=== PATIENT | female | born 1970 | race Caucasian/White ===

== ENCOUNTER → 2021-08-01 | Outpatient (CLI) | payer BC ==
--- NOTE | 2021-08-02 11:15 | MM ---
Reason for exam: screening (asymptomatic). Last mammogram was performed 3 years and 3 months ago. History: Patient is nulliparous. Retro-pectoral saline implants in both breasts, 1997. Physical Findings: A clinical breast exam by your physician is recommended on an annual basis and results should be correlated with mammographic findings. MG 3D Screen Mammo Imp/Cad Bilateral CC, MLO, and ID view(s) were taken. Prior study comparison: April 28, 2018, mammogram, performed at [place]. March 13, 2016, mammogram, performed at [place]. March 06, 2016, mammogram, performed at [place]. The breast tissue is extremely dense which could obscure a lesion on mammography. There is an increasing heterogeneous group of microcalcifications upper outer right breast zone B. Bilateral implants are intact. This finding is changed when compared with previous exams. ASSESSMENT: Incomplete: need additional imaging evaluation, BI-RAD 0 RECOMMENDATION: Special view mammogram of the right breast. [facility] will attempt to contact patient to return for supplemental views.
== END | disposition home or self-care (01) ==
LOC: RADMAMWWP 16:02
PROVIDERS: ATTEND Obstetrics & Gynecology
DX: Z12.31 Encounter for screening mammogram for malignant neoplasm of breast (principal)
CPT/HCPCS: 77063; 77067

== ENCOUNTER → 2021-08-04 | Outpatient (CLI) | payer BC ==
--- NOTE | 2021-08-08 08:06 | MM ---
Reason for exam: additional evaluation requested from abnormal screening. Last mammogram was performed less than 1 month ago. History: Patient is nulliparous. Retro-pectoral saline implants in both breasts, 1996. Physical Findings: A clinical breast exam by your physician is recommended on an annual basis and results should be correlated with mammographic findings. MG 3D Work Up W/Cad W/Imp RT CC with magnification, ML with magnification, and ML view(s) were taken of the right breast. Prior study comparison: August 01, 2021, bilateral MG 3d screen mammo imp/cad. April 28, 2018, mammogram, performed at [place]. The breast tissue is extremely dense which could obscure a lesion on mammography. Finding: There are increasing, suspicious grouped/clustered calcifications in the 12 o'clock middle position of the right breast. Results were given to the patient verbally at the time of the exam. ASSESSMENT: Suspicious, BI-RAD 4 RECOMMENDATION: Stereotactic core biopsy of the right breast. Called Dr. Steele's office with mammographic findings and has scheduled an appointment for the patient for 09/07/21 at 7:[address] Owen. Biopsy scheduled for 09/07/21 at 7:00. PRELIMINARY REPORT CALLED AND FAXED TO DR. OWEN ON 08/08/21.
== END | disposition home or self-care (01) ==
LOC: RADMAMWWP 13:33
PROVIDERS: ATTEND Obstetrics & Gynecology
DX: R92.8 Other abnormal and inconclusive findings on diagnostic imaging of breast (principal)
CPT/HCPCS: 77061; 77065

== ENCOUNTER → 2021-09-07 | Outpatient (CLI) | payer BC ==
--- NOTE | 2021-09-07 08:02 | P.GSHP ---
History of Present Illness H&P Date: 09/07/21 Chief Complaint: Mammographic abnormality right breast Yadira is a 51-year-old white female seen in consultation for Dr. Steele, and Dr. Bonilla regarding a mammographic abnormality in her right breast. A bilateral screening mammogram performed on . Additional views of the right breast recommended which were performed on . These revealed increasing suspicious group cluster calcifications in the 12 o'clock position middle area of the right breast. The patient does not feel anything of concern in her breast. She has had bilateral breast implants in 1996. She has not had any other surgery on her breast. She has had no problems with the implants. She is not complaining of any recent trauma or infection in the breast. She is not complaining of any pain in the breast. She's not complaining of any nipple discharge or skin changes. Caffeine: 1 cup coffee/day nicotine: none chocolate: daily BCP:stopped in 2007; used them for about 15 years hormones: none Family history: mother: neuroendocrine cancer, in her esophogus father: pre-cancer in his blood Hormonal History: menarche: 14 ; Ab2 menopause: 49 hormones: none Surgical history: : 2 breast augmentation Medical history: none Social history: Nicotine: Negative Alcohol: weekly three times wine drugs: none - Constitutional Constitutional: Denies chills, Denies fever - EENT Eyes: denies blurred vision, denies pain Ears: deny: decreased hearing, tinnitus Ears, nose, mouth and throat: Denies headache, Denies sore throat - Breasts Breasts: bilateral: as per HPI - Cardiovascular Cardiovascular: Denies chest pain, Denies shortness of breath - Respiratory Respiratory: Denies cough, Denies 7 - Gastrointestinal Gastrointestinal: Denies abdominal pain, Denies diarrhea, Denies nausea, Denies vomiting - Genitourinary (Female) Genitourinary: Denies dysuria, Denies hematuria - Menstruation Menstruation: Reports postmenopausal - Musculoskeletal Musculoskeletal: Denies myalgias - Integumentary Integumentary: Denies pruritus, Denies rash - Neurological Neurological: Denies numbness, Denies weakness - Psychiatric Psychiatric: Denies anxiety, Denies depression - Endocrine Endocrine: Denies fatigue, Denies weight change - Hematologic/Lymphatic Comment: none - Allergic/Immunologic Allergic/Immunologic: Reports as per HPI Medications and Allergies Home Medications Medication Instructions Recorded Confirmed Type No Known Home Medications 08/29/21 09/07/21 History Allergies Allergy/AdvReac Type Severity Reaction Status Date / Time No Known Allergies Allergy Verified 09/07/21 07:12 Surgical - Exam - General moderate distress - Eyes normal ocular movement - ENT no hearing loss - Neck trachea midline - Respiratory normal respiratory effort, clear to auscultation - Cardiovascular Heart Sounds: normal: S1, S2 - Abdomen Abdomen: soft, non tender, no guarding, no rigid, no rebound - Integumentary normal turgor - Neurologic no disoriented, no combative - Musculoskeletal normal gait - Psychiatric oriented to time, oriented to person, oriented to place, speech is normal, memory intact Breast Exam: BRA: 36D inspection: bilateral grade 1 ptosis; bilateral breast implants Palpation: Right breast: Multi-positional exam fibrocystic changes no dominant masses or nodules of concern, implant in place Right axilla: No adenopathy of concern Left breast: Implant in place, fibrocystic changes, multi-positional exam no dominant masses or nodules of concern Left axilla: No adenopathy of concern Results Mammogram personally reviewed with Dr. Edward; microcalcifications of concern noted right breast at 12 o'clock position Assessment and Plan Assessment: Impression: Radiographic abnormality right breast microcalcifications of concern 12 o'clock position Bilateral subpectoral breast implants saline Family history of cancer Plan: Stereotactic core biopsy right breast Risk and benefits of the procedure discussed with the patient. Risks include but are not limited to bleeding, infection, reaction to the anesthetic, injury to the implant. Alternatives such as watchful waiting or resection in the operating room were discussed but not recommended. The patient understands and wishes to proceed. CC: Dr. Steele, Dr. Bonilla
[2021-09-07 08:08] VITALS: BP 122/77; PULSE 56; RESP 16; TEMP 98.3
== END ==
LOC: WWCWWP 07:02
PROVIDERS: ATTEND Surgery
DX: R92.0 Mammographic microcalcification found on diagnostic imaging of breast (principal); Z98.82 Breast implant status; Z80.8 Family history of malignant neoplasm of other organs or systems

== ENCOUNTER → 2021-09-07 | Day surgery (SDC) | payer BC ==
[2021-09-07 07:20] VITALS: RESP 16
--- NOTE | 2021-09-07 08:54 | P.PCN ---
Date of Procedure: 09/07/21 Preoperative Diagnosis: Microcalcifications of concern right breast 12:00 middle position Postoperative Diagnosis: Same Procedure(s) Performed: Stereotactic core biopsy right breast Anesthesia: local Surgeon: Malini Petty Pathology: other (Right breast tissue, radiograph of the specimen reveals microcalcifications of concern) Condition: stable Disposition: same day Indications for Procedure: Increasing microcalcifications suspicious group/clustered in 12 o'clock position right breast midportion Operative Findings: Radiograph of specimen reveals microcalcifications of concern Description of Procedure: Yadira is a 51-year-old white female who underwent a routine mammogram and on additional views on 08-04-21 was noted to have increasing grouped/clustered calcifications at the 12:00 middle position of the right breast. Stereotactic c ore biopsy was recommended. Risks and benefits of the procedure were discussed with the patient including but not limited to bleeding, infection, reaction to the anesthetic. Of note is the fact that the patient has bilateral subpectoral implants and risk of injury of an implant was also discussed with the patient. Alternatives such as watchful waiting or resection in the operating room were discussed but not recommended. The patient wished to proceed with a stero- biopsy. The patient was taken to the stereotactic core biopsy room. She was positioned prone on the lo-rad table. A coarse wire drawer film was obtained. The area of concern was identified. A stereo pair was obtained and the lesion was targeted. A CC from above approach was utilized. The location of the lesion was in the right breast 12:00 middle position. The breast was prepped using Betadine. 20 mL of 1% lidocaine were used to anesthetize the area of concern. A 9-gauge vacuum-assisted core rotating biopsy needle was driven to the correct coordinates. A prefire film was obtained. The needle was noted to be in the correct location. The needle was fired and a post-fire film was obtained. Again the needle was noted to be in the correct location. 13 core biopsy specimens were obtained. Radiograph of the specimens revealed the calcifications of concern had been obtained. A secure yolanda Top-Hat clip was placed. On post procedure radiograph the clip was noted to be in the correct location. The patient tolerated the procedure in stable condition. The specimen was sent to pathology. The patient will follow-up with Dr. Maguire next week.
[2021-09-07 09:03] VITALS: BP 140/79; PULSE 57; TEMP 98.2
--- NOTE | 2021-09-12 09:25 | MM ---
Addendum entered and electronically signed by Malini Petty MD 09/07/21 09:26: The patient after the procedure underwent a two view mammogram for clip placement. Although the clip was noted to be in the correct location in the stereotactic core biopsy room on the post procedure mammogram the clip had migrated approximately 5.2 cm inferior to the biopsy site. It is still believe that the correct site was biopsied and there are some residual calcifications present should we need to localize this. The clip however is not in the location of the biopsy site. Original Note: Date of Procedure: 09/07/21 Preoperative Diagnosis: Microcalcifications of concern right breast 12:00 middle position Postoperative Diagnosis: Same Procedure(s) Performed: Stereotactic core biopsy right breast Anesthesia: local Surgeon: Malini Petty Pathology: other (Right breast tissue, radiograph of the specimen reveals microcalcifications of concern) Condition: stable Disposition: same day Indications for Procedure: Increasing microcalcifications suspicious group/clustered in 12 o'clock position right breast midportion Operative Findings: Radiograph of specimen reveals microcalcifications of concern Description of Procedure: Yadira is a 51-year-old white female who underwent a routine mammogram and on additional views on 08-04-21 was noted to have increasing grouped/clustered calcifications at the 12:00 middle position of the right breast. Stereotactic core biopsy was recommended. Risks and benefits of the procedure were discussed with the patient including but not limited to bleeding, infection, reaction to the anesthetic. Of note is the fact that the patient has bilateral subpectoral implants and risk of injury of an implant was also discussed with the patient. Alternatives such as watchful waiting or resection in the operating room were discussed but not recommended. The patient wished to proceed with a stero- biopsy. The patient was taken to the stereotactic core biopsy room. She was positioned prone on the lo-rad table. A respiratory assistant film was obtained. The area of concern was identified. A stereo pair was obtained and the lesion was targeted. A CC from above approach was utilized. The location of the lesion was in the right breast 12:00 middle position. The breast was prepped using Betadine. 20 mL of 1% lidocaine were used to anesthetize the area of concern. A 9-gauge vacuum-assisted core rotating biopsy needle was driven to the correct coordinates. A prefire film was obtained. The needle was noted to be in the correct location. The needle was fired and a post-fire film was obtained. Again the needle was noted to be in the correct location. 13 core biopsy specimens were obtained. Radiograph of the specimens revealed the calcifications of concern had been obtained. A secure yolanda Top-Hat clip was placed. On post procedure radiograph the clip was noted to be in the correct location. The patient tolerated the procedure in stable condition. The specimen was sent to pathology. The patient will follow-up with Dr. Maguire next week. MAYI
== END ==
LOC: RADMAMWWP 07:03
PROVIDERS: ATTEND Surgery
DX: R92.8 Other abnormal and inconclusive findings on diagnostic imaging of breast (principal); N60.11 Diffuse cystic mastopathy of right breast; N60.81 Other benign mammary dysplasias of right breast; N60.21 Fibroadenosis of right breast
CPT/HCPCS: 88305; 19081; A4648; J2001

== ENCOUNTER → 2022-09-20 | Outpatient (CLI) | payer BC ==
--- NOTE | 2022-09-21 07:30 | MM ---
Reason for Exam: Screening (asymptomatic). Last mammogram was performed 1 year(s) and 2 month(s) ago. Patient History: Menarche at age 14. Patient has no children. Postmenopausal. 09/07/2021, Benign MG stereo VAD BX RT on the right side. 1996, Bilateral Implants. Risk Values: Coco 5 year model risk: 1.3%. NCI Lifetime model risk: 10.1%. Prior Study Comparison: 04/28/2018 Screening Mammogram, [place]. 08/01/2021 Bilateral Screening Mammogram, [facility]. 08/04/2021 Right Diagnostic Mammogram, [facility]. Tissue Density: The breast tissue is heterogeneously dense. This may lower the sensitivity of mammography. Findings: Analyzed By CAD. Grouped calcifications right breast upper aspect on MLO implant displaced imaging, these have been present dating back to 2018 but appear more prominent on today's exam. Left breast There is no suspicious group of microcalcifications or new suspicious mass in either breast. Overall Assessment: Incomplete: need additional imaging evaluation, BI-RAD 0 Management: Diagnostic Mammogram of the right breast. [facility] will attempt to contact patient to return for supplemental views and ultrasound if indicated. Patient should continue monthly self-breast exams. A clinical breast exam by your physician is recommended on an annual basis. This exam should not preclude additional follow-up of suspicious palpable abnormalities. Note on Coco scores and lifetime risk: 1. A Coco score greater than 3% is considered moderate risk. If this is the case, consider specialist referral to assess eligibility for a risk reducing agent. 2. If overall lifetime risk for the development of breast cancer is 20% or higher, the patient may qualify for future screening with alternating mammogram and breast MRI. Electronically signed and approved by: Romeo Valencia DO
== END | disposition home or self-care (01) ==
LOC: RADMAMWWP 14:51
PROVIDERS: ATTEND Family Medicine
DX: Z12.31 Encounter for screening mammogram for malignant neoplasm of breast (principal); Z78.0 Asymptomatic menopausal state
CPT/HCPCS: 77063; 77067

== ENCOUNTER → 2022-09-27 | Outpatient (CLI) | payer BC ==
--- NOTE | 2022-09-28 07:14 | MM ---
Reason for Exam: Additional evaluation requested from abnormal screening. Last screening mammogram was performed less than 1 month ago. Patient History: Menarche at age 14. Patient has no children. Postmenopausal. 09/07/2021, Benign MG stereo VAD BX RT on the right side. 1996, Bilateral Implants. Risk Values: Coco 5 year model risk: 1.3%. NCI Lifetime model risk: 10.1%. Prior Study Comparison: 03/06/2016 Screening Mammogram, [place]. 03/13/2016 Screening Mammogram, [place]. 04/28/2018 Screening Mammogram, [place]. 08/01/2021 Bilateral Screening Mammogram, [facility]. 08/04/2021 Right Diagnostic Mammogram, [facility]. 09/20/2022 Bilateral MG 3D screen mammo imp/cad., [facility]. Tissue Density: Right: The breast tissue is heterogeneously dense. This may lower the sensitivity of mammography. Findings: Analyzed By CAD. Increasing indeterminate microcalcifications right 11:00 position 4 cm from the nipple. Tissue diagnosis is recommended. Overall Assessment: Suspicious, BI-RAD 4 Management: Stereotactic Core Biopsy of the right breast. Results were given to the patient verbally at the time of exam. Patient should continue monthly self-breast exams. A clinical breast exam by your physician is recommended on an annual basis. This exam should not preclude additional follow-up of suspicious palpable abnormalities. Note on Coco scores and lifetime risk: 1. A Coco score greater than 3% is considered moderate risk. If this is the case, consider specialist referral to assess eligibility for a risk reducing agent. 2. If overall lifetime risk for the development of breast cancer is 20% or higher, the patient may qualify for future screening with alternating mammogram and breast MRI. Electronically signed and approved by: Thomas Viramontes M.D. Radiologis
== END | disposition home or self-care (01) ==
LOC: RADUSWWP 12:54
PROVIDERS: ATTEND Family Medicine
DX: R92.8 Other abnormal and inconclusive findings on diagnostic imaging of breast (principal); Z78.0 Asymptomatic menopausal state
CPT/HCPCS: 77061; 77065

== ENCOUNTER → 2022-10-05 | Day surgery (SDC) | payer BC ==
[2022-10-05 10:33] VITALS: RESP 16
[2022-10-05 11:31] VITALS: BP 124/81; PULSE 60; TEMP 98.1
--- NOTE | 2022-10-11 09:15 | MM ---
Risk Values: Coco 5 year model risk: 1.3%. NCI Lifetime model risk: 10.1%. Prior Study Comparison: 08/04/2021 Right Diagnostic Mammogram, [facility]. 09/20/2022 Bilateral MG 3D screen mammo imp/cad., [facility]. 09/27/2022 Right MG 3D work up w/cad RT, [facility]. Pathology Description: Approach: CC FA Needle Type: Eviva Cores: 11 Skin Nicks: 1 Gauge: 9 no problems The calcifications in question within the right breast were targeted by the undersigned. Procedure was performed by the undersigned. Informed consent was obtained and all of the patients questions were answered. The standard sterile technique was utilized and appropriate local anesthesia was obtained with 1% lidocaine. Mammotome probe was advanced and multiple core samples were obtained and sent to pathology for interpretation. Microclip marker was deployed at the site of biopsy. Post procedural mammogram demonstrates appropriate deployment of radiopaque clip marker. The patient tolerated the procedure well and left the department in stable condition. Pathology results are pending. Impression: Successful stereotactic core biopsy right breast. Pathology Results: Result: Benign, Fibrocystic change. RIGHT BREAST, STEREOTACTIC CORE BIOPSY: Fibrocystic change with fibrosis, apocrine metaplasia, periductal chronic inflammation, focal fat necrosis, and calcium oxalate-type microcalcification. Sections examined negative for in situ or invasive carcinoma. Focal sclerosing adenosis present. Overall Assessment: Benign Management: Diagnostic Mammogram of the right breast in 6 months. Electronically signed and approved by: Thomas Viramontes M.D. Radiologis
== END ==
LOC: RADMAMWWP 10:01
PROVIDERS: ATTEND Surgery
DX: N60.11 Diffuse cystic mastopathy of right breast (principal); N60.21 Fibroadenosis of right breast
CPT/HCPCS: 88305; 19081; A4648; J2001

== ENCOUNTER → 2022-10-12 | Outpatient (CLI) | payer BC ==
[2022-10-12 13:46] VITALS: BP 117/76; PULSE 53; RESP 16; TEMP 98.1
--- NOTE | 2022-10-12 14:10 | P.PN ---
Subjective Progress Note Date: 10/12/22 Principal diagnosis: fibrocystic breast changes Yadira is a 52 year old white female status post right breast stero biopsy on 10-05-22. Her results were benign concordant. She also had a stero biopsy of the right breat on 09-07-21 which was benign concordant. She tolerated the procedure without difficulty. Objective - Vital Signs Vital signs: Vital Signs Temp 98.1 F 10/12/22 13:42 Pulse 53 L 10/12/22 13:42 Resp 16 10/12/22 13:42 BP 117/76 10/12/22 13:42 Pulse Ox 100 10/12/22 13:42 FiO2 Intake & Output 10/11/22 10/12/22 10/12/22 18:59 06:59 18:59 Weight 65.771 kg - Constitutional General appearance: Present: cooperative - EENT Eyes: Present: EOMI ENT: Present: hearing grossly normal - Neck Neck: Present: normal ROM - Respiratory Respiratory: bilateral: CTA - Cardiovascular Heart sounds: normal: S1, S2 - Integumentary Integumentary Comment(s): biopsy site right breast mild ecchymosis no evidence of hematoma or infection Assessment and Plan Assessment: Impression: Fibrocystic breast changes on stereo biopsy [phone] Fibrocystic changes on stereo biopsy [phone] right breast Fibrocystic breast changes Plan: Right breast mammogram in 6 months Bilateral mammogram in 1 year CC: Dr. Sosa
== END ==
LOC: WWCWWP 13:17
PROVIDERS: ATTEND Surgery
DX: N60.11 Diffuse cystic mastopathy of right breast (principal)

== ENCOUNTER → 2023-04-05 | Outpatient (CLI) | payer BC ==
--- NOTE | 2023-04-05 13:38 | MM ---
Reason for Exam: Follow-up at short interval from prior study. Last screening mammogram was performed 6 month(s) ago. Patient History: Menarche at age 14. Patient has no children. Postmenopausal. 10/05/2022, Benign MG stereo VAD BX RT on the right side. 09/07/2021, Benign MG stereo VAD BX RT on the right side. 1996, Bilateral Implants. Risk Values: Coco 5 year model risk: 1.7%. NCI Lifetime model risk: 12.4%. Prior Study Comparison: 08/04/2021 Right Diagnostic Mammogram, [facility]. 09/20/2022 Bilateral MG 3D screen mammo imp/cad., [facility]. 09/27/2022 Right MG 3D work up w/cad RT, [facility]. Tissue Density: Right: The breast tissue is heterogeneously dense. This may lower the sensitivity of mammography. Findings: Analyzed By CAD. Saline implant redemonstrated. Regional and grouped punctate calcifications are unchanged. 2 microclips from prior biopsies. No significant change from prior exams. Overall Assessment: Benign, BI-RAD 2 Management: Screening Mammogram of both breasts in 6 months. . Results were given to the patient verbally at the time of exam. Patient should continue monthly self-breast exams. A clinical breast exam by your physician is recommended on an annual basis. This exam should not preclude additional follow-up of suspicious palpable abnormalities. Note on Coco scores and lifetime risk: 1. A Coco score greater than 3% is considered moderate risk. If this is the case, consider specialist referral to assess eligibility for a risk reducing agent. 2. If overall lifetime risk for the development of breast cancer is 20% or higher, the patient may qualify for future screening with alternating mammogram and breast MRI. Electronically signed and approved by: Cynthia Edward M.D. Radiologist
--- NOTE | 2023-04-05 14:20 | P.PN ---
Subjective Progress Note Date: 04/05/23 Principal diagnosis: fibrocystic breast changes Yadira is a 53-year-old white female seen initially in [address] Steele, and Dr. Bonilla regarding a mammographic abnormality in her right breast. A bilateral screening mammogram performed on . Additional views of the right breast recommended which were performed on . These revealed increasing suspicious group cluster calcifications in the 12 o'clock position middle area of the right breast. The patient does not feel anything of concern in her breast. She has had bilateral breast implants in 1996. She has not had any other surgery on her breast. She has had no problems with the implants. She is not complaining of any recent trauma or infection in the breast. She is not complaining of any pain in the breast. She's not complaining of any nipple discharge or skin changes. A mammogram on 09-20-22 led to addition a views of the right breast and a stero biopsy on which was benign concordant. She had a repeat right breast mammogram on 04-05-23 which was BIRAD 2. The patient is not complaining of any new lumps masses or nodules of concern in either breast. Caffeine: 1 cup coffee/day nicotine: none chocolate: daily BCP:stopped in 2007; used them for about 15 years hormones: none Family history: mother: neuroendocrine cancer, in her esophogus father: pre-cancer in his blood Hormonal History: menarche: 14 ; Ab2 menopause: 49 hormones: none Surgical history: : 2 breast augmentation Medical history: none vertigo/ brain MRI done recently since last visit Social history: Nicotine: Negative Alcohol: weekly three times wine drugs: none - Constitutional Constitutional: Denies chills, Denies fever - EENT Eyes: denies blurred vision, denies pain Ears: deny: decreased hearing, tinnitus Ears, nose, mouth and throat: Denies headache, Denies sore throat - Breasts Breasts: bilateral: as per HPI - Cardiovascular Cardiovascular: Denies chest pain, Denies shortness of breath - Respiratory Respiratory: Denies cough - Gastrointestinal Gastrointestinal: Denies abdominal pain, Denies diarrhea, Denies nausea, Denies vomiting - Genitourinary (Female) Genitourinary: Denies dysuria, Denies hematuria - Menstruation Menstruation: Reports postmenopausal - Musculoskeletal Musculoskeletal: Denies myalgias - Integumentary Integumentary: Denies pruritus, Denies rash - Neurological Neurological: Denies numbness, Denies weakness - Psychiatric Psychiatric: Denies anxiety, Denies depression - Endocrine Endocrine: Denies fatigue, Denies weight change - Hematologic/Lymphatic Comment: none - Allergic/Immunologic Allergic/Immunologic: Reports as per HPI Medications and Allergies Home Medications Medication Instructions Recorded Confirmed Type No Known Home Medications 08/29/21 09/07/21 History Allergies Allergy/AdvReac Type Severity Reaction Status Date / Time No Known Allergies Allergy Verified 09/07/21 07:12 Objective - Constitutional General appearance: Present: cooperative - EENT Eyes: Present: EOMI ENT: Present: hearing grossly normal - Neck Neck: Present: normal ROM - Respiratory Respiratory: bilateral: CTA - Cardiovascular Heart sounds: normal: S1, S2 - Integumentary Integumentary: Present: normal turgor - Musculoskeletal Musculoskeletal: Present: gait normal - Psychiatric Psychiatric: Present: A&O x's 3, appropriate affect, intact judgment & insight - Additional findings Additional findings: Breast Exam: BRA: 36D inspection: bilateral grade 1 ptosis; bilateral breast implants Palpation: Right breast: Multi-positional exam fibrocystic changes no dominant masses or nodules of concern, implant in place Right axilla: No adenopathy of concern Left breast: Implant in place, fibrocystic changes, multi-positional exam no dominant masses or nodules of concern Left axilla: No adenopathy of concern Assessment and Plan Assessment: Impression: fibrocystic breast changes inflammation in the sinuses 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
== END | disposition home or self-care (01) ==
LOC: RADMAMWWP 12:58
PROVIDERS: ATTEND Surgery
DX: R92.331 Mammographic heterogeneous density, right breast (principal); R92.1 Mammographic calcification found on diagnostic imaging of breast; Z78.0 Asymptomatic menopausal state
CPT/HCPCS: 77061; 77065

== ENCOUNTER → 2023-04-05 | Outpatient (CLI) | payer BC ==
[2023-04-05 15:05] VITALS: BP 120/78; PULSE 55; RESP 17; TEMP 97.9
== END ==
LOC: WWCWWP 14:13
PROVIDERS: ATTEND Surgery
DX: Z53.9 Procedure and treatment not carried out, unspecified reason (principal)

== ENCOUNTER → 2023-09-23 | Outpatient (CLI) | payer BC ==
--- NOTE | 2023-09-24 08:51 | MM ---
Reason for Exam: Screening (asymptomatic). Last screening mammogram was performed 12 month(s) ago. Patient History: Menarche at age 14. Patient has no children. Postmenopausal. 10/05/2022, Benign MG stereo VAD BX RT on the right side. 09/07/2021, Benign MG stereo VAD BX RT on the right side. 1997, Bilateral Implants. Risk Values: Coco 5 year model risk: 1.7%. NCI Lifetime model risk: 12.4%. Prior Study Comparison: 09/20/2022 Bilateral MG 3D screen mammo imp/cad., [facility]. 09/27/2022 Right MG 3D work up w/cad RT, [facility]. 04/05/2023 Right MG 3D diag mammo imp w/cad RT, [facility]. Tissue Density: The breasts are extremely dense, which lowers the sensitivity of mammography. Findings: Analyzed By CAD. There is no suspicious group of microcalcifications or new suspicious mass in either breast. Bilateral implants are intact. Overall Assessment: Benign, BI-RAD 2 Management: Screening Mammogram of both breasts in 1 year. . Patient should continue monthly self-breast exams. A clinical breast exam by your physician is recommended on an annual basis. This exam should not preclude additional follow-up of suspicious palpable abnormalities. Note on Coco scores and lifetime risk: 1. A Coco score greater than 3% is considered moderate risk. If this is the case, consider specialist referral to assess eligibility for a risk reducing agent. 2. If overall lifetime risk for the development of breast cancer is 20% or higher, the patient may qualify for future screening with alternating mammogram and breast MRI. Electronically signed and approved by: Thomas Viramontes M.D. Radiologis
== END | disposition home or self-care (01) ==
LOC: RADMAMWWP 08:29
PROVIDERS: ATTEND Surgery
DX: Z12.31 Encounter for screening mammogram for malignant neoplasm of breast (principal); Z78.0 Asymptomatic menopausal state
CPT/HCPCS: 77063; 77067

== ENCOUNTER → 2023-09-27 | Outpatient (CLI) | payer BC ==
[2023-09-27 11:58] VITALS: BP 119/74; PULSE 71; RESP 16; TEMP 98.1
--- NOTE | 2023-09-27 12:30 | P.PN ---
Subjective Progress Note Date: 09/27/23 09-27-23 Principal diagnosis: fibrocystic breast changes Yadira is a 53-year-old white female seen initially in [address] Steele, and Dr. Bonilla regarding a mammographic abnormality in her right breast. A bilateral screening mammogram performed on . Additional views of the right breast recommended which were performed on . These revealed increasing suspicious group cluster calcifications in the 12 o'clock position middle area of the right breast. The patient does not feel anything of concern in her breast. She has had bilateral breast implants in 1996. She has not had any other surgery on her breast. She has had no problems with the implants. She is not complaining of any recent trauma or infection in the breast. She is not complaining of any pain in the breast. She's not complaining of any nipple discharge or skin changes. A mammogram on 09-20-22 led to addition a views of the right breast and a stero biopsy on which was benign concordant. She had a repeat right breast mammogram on 04-05-23 which was BIRAD 2. The patient is not complaining of any new lumps masses or nodules of concern in either breast. bilateral mammogram 09-23-23 BIRAD 2, she is not complaining of nay new lumps masses nodules of concern; In MRI of her brain since her last visit which revealed tight muscles in her neck and has had physical therapy with resolution of her headaches. Caffeine: 1 cup coffee/day nicotine: none chocolate: daily BCP:stopped in 2007; used them for about 15 years hormones: none Family history: mother: neuroendocrine cancer, in her esophogus father: pre-cancer in his blood Hormonal History: menarche: 14 ; Ab2 menopause: 49 hormones: none Surgical history: : 2 breast augmentation Medical history: none vertigo/ brain MRI done recently since last visit Social history: Nicotine: Negative Alcohol: weekly three times wine drugs: none - Constitutional Constitutional: Denies chills, Denies fever - EENT Eyes: denies blurred vision, denies pain Ears: deny: decreased hearing, tinnitus Ears, nose, mouth and throat: Denies headache, Denies sore throat - Breasts Breasts: bilateral: as per HPI - Cardiovascular Cardiovascular: Denies chest pain, Denies shortness of breath - Respiratory Respiratory: Denies cough - Gastrointestinal Gastrointestinal: Denies abdominal pain, Denies diarrhea, Denies nausea, Denies vomiting - Genitourinary (Female) Genitourinary: Denies dysuria, Denies hematuria - Menstruation Menstruation: Reports postmenopausal - Musculoskeletal Musculoskeletal: Denies myalgias - Integumentary Integumentary: Denies pruritus, Denies rash - Neurological Neurological: Denies numbness, Denies weakness - Psychiatric Psychiatric: Denies anxiety, Denies depression - Endocrine Endocrine: Denies fatigue, Denies weight change - Hematologic/Lymphatic Comment: none - Allergic/Immunologic Allergic/Immunologic: Reports as per HPI Medications and Allergies Home Medications Medication Instructions Recorded Confirmed Type No Known Home Medications 08/29/21 09/07/21 History Allergies Allergy/AdvReac Type Severity Reaction Status Date / Time No Known Allergies Allergy Verified 09/07/21 07:12 Objective - Vital Signs Vital signs: Vital Signs Temp 98.1 F 09/27/23 11:54 Pulse 71 09/27/23 11:54 Resp 16 09/27/23 11:54 BP 119/74 09/27/23 11:54 Pulse Ox 100 09/27/23 11:54 FiO2 Intake & Output 09/26/23 09/27/23 09/27/23 18:59 06:59 18:59 Weight 65.771 kg - Constitutional General appearance: Present: cooperative - EENT Eyes: Present: EOMI ENT: Present: hearing grossly normal - Neck Neck: Present: normal ROM - Respiratory Respiratory: bilateral: CTA - Cardiovascular Rhythm: regular Heart sounds: normal: S1, S2 - Integumentary Integumentary: Present: normal turgor - Musculoskeletal Musculoskeletal: Present: gait normal - Psychiatric Psychiatric: Present: A&O x's 3, appropriate affect, intact judgment & insight - Additional findings Additional findings: Breast Exam: BRA: 36D inspection: bilateral grade 1 ptosis; bilateral breast implants Palpation: Right breast: Multi-positional exam fibrocystic changes no dominant masses or nodules of concern, implant in place Right axilla: No adenopathy of concern Left breast: Implant in place, fibrocystic changes, multi-positional exam no dominant masses or nodules of concern Left axilla: No adenopathy of concern Assessment and Plan Assessment: Impression: fibrocystic breast changes Plan: bilateral mammogram 1 year with appointment Virgil Oreilly
== END ==
LOC: WWCWWP 11:41
PROVIDERS: ATTEND Surgery
DX: N60.11 Diffuse cystic mastopathy of right breast (principal); N60.12 Diffuse cystic mastopathy of left breast; R92.1 Mammographic calcification found on diagnostic imaging of breast

== ENCOUNTER → 2024-09-23 | Outpatient (CLI) | payer SELFPAY ==
--- NOTE | 2024-09-23 10:36 | MM ---
Reason for Exam: Hx of breast augmentation, asymptomatic. Last screening mammogram was performed 12 month(s) ago. Patient History: Menarche at age 14. Patient has no children. Postmenopausal. 10/05/2022, Benign MG stereo VAD BX RT on the right side. 09/07/2021, Benign MG stereo VAD BX RT on the right side. 1997, Bilateral Implants. Risk Values: Coco 5 year model risk: 1.8%. NCI Lifetime model risk: 12.2%. Prior Study Comparison: 04/28/2018 Screening Mammogram, [place]. 08/01/2021 Bilateral Screening Mammogram, [facility]. 08/04/2021 Right Diagnostic Mammogram, [facility]. 09/20/2022 Bilateral MG 3D screen mammo imp/cad., [facility]. 09/27/2022 Right MG 3D work up w/cad RT, [facility]. 04/05/2023 Right MG 3D diag mammo imp w/cad RT, [facility]. 09/23/2023 Bilateral MG 3D screen mammo imp/cad., [facility]. Tissue Density: The breasts are heterogeneously dense, which may obscure small masses. Findings: Analyzed By CAD. There are 2 biopsy clips in the right breast redemonstrated. There are some scattered small benign-appearing round calcifications bilaterally redemonstrated. Bilateral breast implants again seen. There is no suspicious new group of microcalcifications or new suspicious mass in either breast. Overall Assessment: Benign, BI-RAD 2 Management: Screening Mammogram of both breasts in 1 year. . Patient should continue monthly self-breast exams. A clinical breast exam by your physician is recommended on an annual basis. This exam should not preclude additional follow-up of suspicious palpable abnormalities. Note on Coco scores and lifetime risk: 1. A Coco score greater than 3% is considered moderate risk. If this is the case, consider specialist referral to assess eligibility for a risk reducing agent. 2. If overall lifetime risk for the development of breast cancer is 20% or higher, the patient may qualify for future screening with alternating mammogram and breast MRI. [facility], , 09/23/2024 10:33 AM. Electronically signed and approved by: Moi Lopez M.D.
== END | disposition home or self-care (01) ==
LOC: RADMAMWWP 09:48
PROVIDERS: ATTEND Surgery
DX: Z12.31 Encounter for screening mammogram for malignant neoplasm of breast (principal); R92.333 Mammographic heterogeneous density, bilateral breasts; R92.1 Mammographic calcification found on diagnostic imaging of breast; Z78.0 Asymptomatic menopausal state
CPT/HCPCS: 77063; 77067

== ENCOUNTER → 2024-09-24 | Outpatient (CLI) | payer BC ==
[2024-09-24 10:56] VITALS: BP 113/74; PULSE 53; RESP 17; TEMP 97.5
--- NOTE | 2024-09-24 11:01 | P.PN ---
Subjective Progress Note Date: 09/24/24 Principal diagnosis: Fibrocystic breast changes 09/27/23 Principal diagnosis: fibrocystic breast changes Yadira is a 54-year-old white female seen initially in [address] Steele, and Dr. Bonilla regarding a mammographic abnormality in her right breast. A bilateral screening mammogram performed on . Additional views of the right breast recommended which were performed on . These revealed increasing suspicious group cluster calcifications in the 12 o'clock position middle area of the right breast. The patient does not feel anything of concern in her breast. She has had bilateral breast implants in 1996. She has not had any other surgery on her breast. She has had no problems with the implants. She is not complaining of any recent trauma or infection in the breast. She is not complaining of any pain in the breast. She's not complaining of any nipple discharge or skin changes. A mammogram on 09-20-22 led to addition a views of the right breast and a stero biopsy on which was benign concordant. She had a repeat right breast mammogram on 04-05-23 which was BIRAD 2. The patient is not complaining of any new lumps masses or nodules of concern in either breast. bilateral mammogram 09-23-24 BIRAD 2, this was personally reviewed she is not complaining of nay new lumps masses nodules of concern; An MRI of her brain which revealed tight muscles in her neck and has had physical therapy with resolution of her headaches, seen physical therapy at Dr. Estrada office Caffeine: 1 cup coffee/day nicotine: none chocolate: daily BCP:stopped in 2007; used them for about 15 years hormones: none Family history: mother: neuroendocrine cancer, in her esophogus father: pre-cancer in his blood Hormonal History: menarche: 14 ; Ab2 menopause: 49 hormones: none Surgical history: : 2 breast augmentation Medical history: none vertigo/ brain MRI done recently since last visit Social history: Nicotine: Negative Alcohol: weekly three times wine drugs: none - Constitutional Constitutional: Denies chills, Denies fever - EENT Eyes: denies blurred vision, denies pain Ears: deny: decreased hearing, tinnitus Ears, nose, mouth and throat: Denies headache, Denies sore throat - Breasts Breasts: bilateral: as per HPI - Cardiovascular Cardiovascular: Denies chest pain, Denies shortness of breath - Respiratory Respiratory: Denies cough - Gastrointestinal Gastrointestinal: Denies abdominal pain, Denies diarrhea, Denies nausea, Denies vomiting - Genitourinary (Female) Genitourinary: Denies dysuria, Denies hematuria - Menstruation Menstruation: Reports postmenopausal - Musculoskeletal Musculoskeletal: Denies myalgias - Integumentary Integumentary: Denies pruritus, Denies rash - Neurological Neurological: Denies numbness, Denies weakness - Psychiatric Psychiatric: Denies anxiety, Denies depression - Endocrine Endocrine: Denies fatigue, Denies weight change - Hematologic/Lymphatic Comment: none - Allergic/Immunologic Allergic/Immunologic: Reports as per HPI Medications and Allergies Home Medications Medication Instructions Recorded Confirmed Type No Known Home Medications 08/29/21 09/07/21 History Allergies Allergy/AdvReac Type Severity Reaction Status Date / Time No Known Allergies Allergy Verified 09/07/21 07:12 Objective - Constitutional General appearance: Present: cooperative - EENT Eyes: Present: EOMI ENT: Present: hearing grossly normal - Neck Neck: Present: normal ROM - Respiratory Respiratory: bilateral: CTA - Cardiovascular Rhythm: regular Heart sounds: normal: S1, S2 - Integumentary Integumentary: Present: normal turgor - Musculoskeletal Musculoskeletal: Present: gait normal - Psychiatric Psychiatric: Present: A&O x's 3, appropriate affect, intact judgment & insight - Additional findings Additional findings: Breast Exam: BRA: 36D inspection: bilateral grade 1 ptosis; bilateral breast implants Palpation: Right breast: Multi-positional exam fibrocystic changes no dominant masses or nodules of concern, implant in place Right axilla: No adenopathy of concern Left breast: Implant in place, fibrocystic changes, multi-positional exam no dominant masses or nodules of concern Left axilla: No adenopathy of concern Assessment and Plan Assessment: Impression: fibrocystic breast changes Plan: bilateral mammogram 1 year with appointment; September 2025 follow up sooner any concerns Virgil Oreilly
== END ==
LOC: WWCWWP 10:41
PROVIDERS: ATTEND Surgery
DX: Z12.31 Encounter for screening mammogram for malignant neoplasm of breast (principal); N60.11 Diffuse cystic mastopathy of right breast